=== PATIENT | male | born 1970 | race African-American/Black ===

== ENCOUNTER → 2019-08-03 | Outpatient (CLI) | payer OTHER | LOC: RAD 14:53 | DX: T85.691A Other mechanical complication of intraperitoneal dialysis catheter, initial encounter (principal); K56.41 Fecal impaction ==

== ENCOUNTER → 2019-10-12 | Outpatient (CLI) | payer OTHER | LOC: RAD 13:06 | DX: T85.691A Other mechanical complication of intraperitoneal dialysis catheter, initial encounter (principal) ==